=== PATIENT | female | born 1950 | race African-American/Black ===

== ENCOUNTER → 2016-12-22 | Outpatient (CLI) | payer MEDICARE, BC ==
--- NOTE | 2016-12-22 15:35 | Diagnostic Imaging Report ---
Indications: Right hip pain for 2 weeks Technique: Chronic axial T1-weighted fast spin-echo and STIR, coronal, sagittal, and axial proton density weighted fat saturated fast spin echo sequences of the right hip performed without IV gadolinium administration. Findings: Comparison: None Right hip joint intact, unremarkable in appearance. Normal width. No effusion. No acetabular or femoral head signal change or contour abnormality. Mildly increased signal within the gluteal tendon insertion on greater trochanter of right femur. No subjacent marrow signal change. Surrounding soft tissues otherwise unremarkable. Right sacroiliac joint likewise intact, unremarkable in appearance. Increased marrow signal within the fourth and fifth sacral vertebral bodies on fat saturated images, with a mild amount of adjacent soft tissue edema. No bony contour abnormality or destruction demonstrated. No additional foci of skeletal signal change identified. At least 2 discrete circumscribed hypointense masses within the uterine myometrium. Central pelvic soft tissue anatomy otherwise unremarkable. IMPRESSION: Abnormality of the fourth and fifth sacral vertebrae as described, may be traumatic or infectious in nature. Suggestion of right gluteal tendinopathy at femoral greater trochanteric insertion site, may be traumatic or inflammatory No other evidence of significant skeletal or articular abnormality--right hip and sacroiliac joints intact, unremarkable in appearance. Small uterine fibroids
--- NOTE | 2016-12-22 15:35 | Diagnostic Imaging Report ---
Indications: Left hip pain for 2 weeks Technique: Chronic axial T1-weighted fast spin-echo and STIR, coronal, sagittal, and axial proton density weighted fat saturated fast spin echo sequences of the left hip performed without IV gadolinium administration. Findings: Comparison: None Left hip joint intact, unremarkable in appearance. Normal width. No effusion. No acetabular or femoral head signal change or contour abnormality. Mildly increased signal within the gluteal tendon insertion on greater trochanter of left femur. No subjacent marrow signal change. Surrounding soft tissues otherwise unremarkable. Left sacroiliac joint likewise intact, unremarkable in appearance. Increased marrow signal within the fourth and fifth sacral vertebral bodies on fat saturated images, with a mild amount of adjacent soft tissue edema. No bony contour abnormality or destruction demonstrated. No additional foci of skeletal signal change identified. At least 2 discrete circumscribed hypointense masses within the uterine myometrium. Central pelvic soft tissue anatomy otherwise unremarkable. IMPRESSION: Abnormality of the fourth and fifth sacral vertebrae as described, may be traumatic or infectious in nature. Suggestion of left gluteal tendinopathy at femoral greater trochanteric insertion site, may be traumatic or inflammatory No other evidence of significant skeletal or articular abnormality--left hip and sacroiliac joints intact, unremarkable in appearance. Small uterine fibroids
== END | disposition home or self-care (01) ==
LOC: MRI 13:55
DX: M25.552 Pain in left hip (principal); M25.551 Pain in right hip; D25.9 Leiomyoma of uterus, unspecified

== ENCOUNTER → 2017-04-24 | Outpatient (CLI) | payer MEDICARE, BC | END | disposition home or self-care (01) | LOC: RAD 15:10 | DX: M25.572 Pain in left ankle and joints of left foot (principal) ==

== ENCOUNTER → 2017-04-27 | Outpatient (CLI) | payer MEDICARE, BC ==
--- NOTE | 2017-04-28 07:22 | Diagnostic Imaging Report ---
Indications: Left shoulder pain, rotator cuff tear Technique: Sagittal oblique T1 weighted fast spin echo, sagittal oblique and coronal oblique T2 weighted fat saturated fast spin echo, sagittal oblique, coronal oblique and axial proton density weighted fat saturated fast spin echo sequences of the left shoulder were performed without IV or intra-articular gadolinium administration. Findings: Comparison: None 5 x 3 mm discrete focus of fluid signal resides within the distal inferior aspect of the supraspinatus tendon at the footprint. Linear increased signal tracks from this point back to the musculotendinous junction along the undersurface of the supraspinatus tendon. There is superimposed diffusely increased signal throughout the supraspinatus and infraspinatus tendons. No tendon retraction or muscular atrophy. Teres minor, subscapularis muscles and tendons intact. Small amount of fluid in the subacromial/subdeltoid bursa. Mild degenerative changes in acromioclavicular joint. No significant inferior margin spurring. Marrow edema and cystic changes in the peripheral aspect of the acromion. Type I acromion. Small amount of fluid in the glenohumeral joint bursa. Posterosuperior aspect of the glenoid labrum small irregular. Circumscribed foci of signal change in the glenoid process subjacent to and coronal stair aspect of the glenoid labrum. Long head biceps tendon normally located within the bicipital groove, appears intact 2 bony process insertion site. Small amount of tendon sheath fluid. Focal edema and cystic changes in the posterior lateral aspect of humeral head. IMPRESSION: Small partial tear of the distal aspect of the supraspinatus tendon at the footprint. Associated interstitial delamination. Superimposed supraspinatus and infraspinatus tendinopathy Small subacromial/subdeltoid bursal, glenohumeral joint, biceps tendon sheath effusions Marrow space cystic changes and edema in the acromion, glenoid, humeral head likely all degenerative. Superimposed traumatic contusions not excludable. Apparent abnormality of the posterior superior aspect of glenoid labrum, not further characterizable on this examination. Clinically indicated, recommend MR arthrography for more detailed evaluation.
--- NOTE | 2017-04-29 10:02 | Diagnostic Imaging Report ---
Indications: Chronic right knee pain Technique: Coronal T1 weighted fast spin-echo and STIR, sagittal proton density weighted fast spin echo, coronal STIR, coronal, sagittal, and axial axial proton density weighted fat saturated fast spin echo sequences of the right knee were performed without IV or intra-articular gadolinium administration Findings: Comparison: None Lateral knee joint compartment normal in width. Mild marginal osteophyte formation. Mild diffuse thinning of femoral condylar articular cartilage without focal defect or subjacent marrow signal change. Lateral meniscus normal in position, size, and configuration. Contains linear mildly increased signal in anterior horn not definitely extending to articular surface. Medial knee joint compartment normal in width. Mild marginal osteophyte formation. Normal thickness and signal of femoral condylar articular cartilage without subjacent marrow signal change. Medial meniscus normal in position, size, configuration, and signal characteristics. Patellofemoral joint normal in width. Mild marginal osteophyte formation. Diffuse thinning of patellar articular cartilage along both medial and lateral facets. Multiple subjacent foci of marrow signal change along both facets, more so laterally. Trochlear articular cartilage and subjacent marrow space appear intact. Anterior and posterior cruciate ligaments, medial collateral ligament, lateral collateral complex, quadriceps and patellar tendons, medial and lateral patellar retinacula are intact, normal in configuration and signal characteristics. Small knee joint/suprapatellar effusion. No obvious intra-articular loose body. Prepatellar soft tissues are edematous. Popliteal fossa unremarkable. Distal femur, patella, proximal tibia and fibula normal in configuration and marrow signal characteristics, aside from changes described above. 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
== END | disposition home or self-care (01) ==
LOC: MRI 12:44
DX: M25.561 Pain in right knee (principal); M17.11 Unilateral primary osteoarthritis, right knee; R60.0 Localized edema; M75.102 Unspecified rotator cuff tear or rupture of left shoulder, not specified as traumatic

== ENCOUNTER 2018-02-09 11:33 | Outpatient (CLI) | payer MEDICARE, BC ==
[2018-02-10] MEDS ORDERED: ASPIR 8181 MG ORAL (15:53)
--- NOTE | 2018-02-10 15:55 | GI Initial Consult Note ---
History of Present Illness General Date patient seen: Feb 09, 2018 Time patient seen: 11:00 Referring physician: MARTA Reason for Consultation: COLONOSCOPY Present Illness HPI 67 year old patient referred by Dr. Díaz for colonoscopy screening. Patient presents today with c/o of heartburn associated with GERD. Denies any unintentional weight loss or changes in dietary habits. No dysphagia. No signs of abuse or neglect. Patient is not fall risk. Last colonoscopy x 5 years ago. Home Meds Reported Medications Aspirin* (ASPIR 81*) 81 Mg Tablet., 81 MG ORAL DAILY, TAB 02/10/18 Allergies: Coded Allergies: Sulfa (Sulfonamide Antibiotics) (Unverified Allergy, Severe, 02/10/18) Patient History History Provided By: Patient PMH Narrative Hypothyroidism BP Asthma Past Surgical History: cholecystectomy Pertinent Family History: none Social History: Denies: smoking, alcohol use, drug use, other Review of Systems All Other Systems: negative except mentioned in HPI Physical Exam Sp02 EP Interpretation: reviewed, normal General Appearance: well appearing, no apparent distress, alert Head: normocephalic EENT: PERRL/EOMI, normal ENT inspection Neck: supple Respiratory: normal breath sounds, no respiratory distress Cardiovascular: normal rate Gastrointestinal: normal inspection, non tender, soft, normal bowel sounds, non -distended Rectal: deferred Genitourinary: no CVA tenderness Musculoskeletal: normal inspection, back normal Neurologic: normal inspection, alert, oriented x3, responsive Psychiatric: normal inspection, judgement/insight normal, memory normal Skin: normal inspection, normal color, no rash, warm/dry, palpation normal, well hydrated Lymphatic: normal inspection, no adenopathy GI: Plan Problems: (1) GERD (gastroesophageal reflux disease) Plan Colonoscopy scheduled for 02/15/18. - CLD & (Nulytely/Suprep/Movi-Prep) prep instructions given and acknowledged by patient. - NPO @ [place] day prior procedure explained. Seen with Dr. Mccormack. Thank you for this patient referral. Lola Romero N.P. Feb 10, 2018 15:55
== END 2018-02-09 12:05 | disposition home or self-care (01) ==
LOC: PAN 11:33
DX: K21.9 Gastro-esophageal reflux disease without esophagitis (principal); Z79.82 Long term (current) use of aspirin; E03.9 Hypothyroidism, unspecified; Z90.49 Acquired absence of other specified parts of digestive tract
CPT/HCPCS: 99201

== ENCOUNTER 2018-03-04 13:24 | Outpatient (CLI) | payer MEDICARE, BC ==
[2018-03-04 13:15] VITALS: BP 114/65
[~2018-03-04 13:24] MED LIST: ADVAIR 250-501 EACH INH; ASPIR 8181 MG ORAL; SINGULAIR10 MG ORAL
--- NOTE | 2018-03-04 13:58 | GI Progress Note ---
Assessment/Plan Problems: (1) Gastritis ICD Codes: K29.70 - Gastritis, unspecified, without bleeding SNOMED: 4308067 Status: stable Status Narrative Discussed with Dr. Mccormack. Assessment/Plan SUMMARY OF FINDINGS: 1. Diffuse gastritis, status post biopsy. 2. Small hiatal hernia. RECOMMENDATIONS: Follow up biopsy results and treat accordingly. >> negative discussed with patient RTC PRN Subjective Gastrointestinal/Abdominal: Reports: no symptoms Objective T 98.2 BP 114/82 P 66 99 RA General Appearance: WD/WN, no apparent distress, alert Cardiovascular: normal rate Respiratory/Chest: normal breath sounds, no respiratory distress Abdominal Exam: normal bowel sounds, non tender, soft Extremities: normal range of motion, non-tender Maricruz Romero NP March 04, 2018 13:58
== END 2018-03-04 13:59 | disposition home or self-care (01) ==
LOC: PAN 13:24
DX: K29.70 Gastritis, unspecified, without bleeding (principal); K44.9 Diaphragmatic hernia without obstruction or gangrene
CPT/HCPCS: 99212

== ENCOUNTER 2019-08-18 12:52 | Outpatient (CLI) | payer MEDICARE, BC ==
--- NOTE | 2019-08-18 13:06 | General Progress Note ---
Assessment/Plan Problem List: (1) Gastritis ICD Codes: K29.70 - Gastritis, unspecified, without bleeding SNOMED: 9300152 (2) GERD (gastroesophageal reflux disease) ICD Codes: K21.9 - Gastro-esophageal reflux disease without esophagitis SNOMED: 481820320 Assessment/Plan: plan colonoscopy next week Subjective ROS Limited/Unobtainable: Yes Allergies: Coded Allergies: SULFA (SULFONAMIDE ANTIBIOTICS) (Unverified Allergy, Severe, 02/10/18) Objective General Appearance: alert EENT: normal ENT inspection Neck: supple Cardiovascular: normal rate Respiratory/Chest: decreased breath sounds Abdomen: normal bowel sounds, non tender, soft Extremities: non-tender Elias Mccormack MD Aug 18, 2019 13:06
== END 2019-08-18 14:52 | disposition home or self-care (01) ==
LOC: PAN 12:52
DX: K29.70 Gastritis, unspecified, without bleeding (principal); K21.9 Gastro-esophageal reflux disease without esophagitis; Z88.2 Allergy status to sulfonamides
CPT/HCPCS: 99212

== ENCOUNTER 2019-08-26 09:51 | Day surgery (SDC) | payer MEDICARE, BC ==
[~2019-08-26] VITALS: Ht 160 cm; Wt 67.1 kg
[2019-08-26] VITALS (9 sets, daily range): BP systolic 107–144; BP diastolic 61–81
[~2019-08-26 09:51] MED LIST changes: +LR 1000ml 1,000 ML IVLG SCH
--- NOTE | 2019-08-26 10:04 | Pre-Procedure Note/Attestation ---
Pre-Procedure Note/Attestation Complete Prior to Procedure Planned Procedure: not applicable Procedure Narrative: colonoscopy Indications for Procedure Pre-Operative Diagnosis: screening Attestation I attest that I discussed the nature of the procedure; its benefits; risks and complications; and alternatives (and the risks and benefits of such alternatives ), prior to the procedure, with the patient (or the patient's legal guest relations representative). I attest that, if there was a reasonable possibility of needing a blood transfusion, the patient (or the patient's legal guest relations representative) was given the [facility] standardized written summary, pursuant to the [place] Blood Safety Act ([place] Health and Safety Code # 1645, as amended). I attest that I re-evaluated the patient just prior to the surgery and that there has been no change in the patient's H&P, except as documented below: Elias Mccormack MD Aug 26, 2019 10:04
--- NOTE | 2019-08-26 10:04 | Short Stay Surgery H&P ---
History of Present Illness History of Present Illness Chief Complaint screening colon HPI Sabrina Garcia is a 68 year old female who was admitted on for Abdominal Pain Patient History Allergies: Coded Allergies: SULFA (SULFONAMIDE ANTIBIOTICS) (Unverified Allergy, Severe, 02/10/18) PAST MEDICAL HISTORY: (1) GERD (gastroesophageal reflux disease) (2) Gastritis Medication History Scheduled Aspirin* (Aspir 81*), 81 MG ORAL DAILY, (Reported) Fluticasone/Salmeterol (Advair 250-50 Diskus), 1 PUFF INH PRN, (Reported) Montelukast Sodium* (Singulair*), 10 MG ORAL DAILY, (Reported) Review of Systems Cardiovascular: Reports: no symptoms, source of infx-prosthesis Gastrointestinal: Reports: gastro esophageal reflux disease Genitourinary: Reports: no symptoms Neurologic: Reports: no symptoms Endocrine: Reports: no symptoms Hematologic: Reports: no symptoms Physical Exam Skin: normal HENT: normal Heart: normal Lungs: normal Abdomen: normal Extremities: normal Plan Plan of Care colonoscopy Attestation Are the patient's medical conditions optimized for surgery? Attestation Response: yes Elias Mccormack MD Aug 26, 2019 10:04
[2019-08-26] MEDS ORDERED: SYNTHROID88 MCG ORAL (11:49)
[2019-08-26] MEDS ORDERED: LOSARTAN POTASS25 MG ORAL (11:49)
[2019-08-26] MEDS ORDERED: Lidocaine 1% MPF 10mg/ml 5ml ONE (11:55)
[2019-08-26] MEDS ORDERED: Propofol 200mg/20ml IV ONE (11:55)
[2019-08-26] MEDS ORDERED: LR 1000ml ONE (11:55)
--- NOTE | 2019-08-26 12:22 | Endoscopy Procedure Note ---
Endoscopy Procedure Note General Indication for Procedure: screening Procedures Performed: colonoscopy Operative Findings/Diagnosis: diverticulosis Specimen: none Pt Tolerated Procedure Well: Yes Estimated Blood Loss: none Anesthesia Anesthesiologist: joyce Anesthesia: MAC Inserted Devices Implant(s) used?: No Quality Quality of Bowel Preparation: Good Did scope reach the cecum?: Yes Was there any complications?: No GI Core Measures 50 yrs or older w/o bx or poly: No 10yrs. F/U recommended: Yes If not recommended, why?: Above average risk 18 years or older w/prev. colo: No Elias Mccormack MD Aug 26, 2019 12:22
--- NOTE | 2019-08-26 12:31 | Anethesia Preoperative Eval ---
Anesthesia Pre-op PMH/ROS General Date of Evaluation: Aug 26, 2019 Time of Evaluation: 11:55 Anesthesiologist: coy ASA Score: ASA 2 Mallampati Score Class I : Soft palate, uvula, fauces, pillars visible Class II: Soft palate, uvula, fauces visible Class III: Soft palate, base of uvula visible Class IV: Only hard plate visible Mallampati Classification: Class II Surgeon: cintia Diagnosis: screening Surgical Procedure: colonoscopy Family History: no anesthesia problems Allergies: Coded Allergies: SULFA (SULFONAMIDE ANTIBIOTICS) (Unverified Allergy, Severe, 02/10/18) Medications: see eMAR Patient NPO?: Yes NPO Date: Aug 26, 2019 NPO Time: 00:01 Past Medical History Cardiovascular: Reports: HTN; Denies: CAD, ID, valve dz, arrhythmia, other Pulmonary: Denies: asthma, COPD, [place], other Gastrointestinal/Genitourinary: Denies: GERD, CRI, ESRD, other Neurologic/Psychiatric: Denies: dementia, CVA, depression/anxiety, TIA, other Endocrine: Reports: hypothyroidism; Denies: DM, steroids, other HEENT: Denies: cataract (L), cataract (R), glaucoma, [place] (L), [place] (R), other Hematology/Immune: Denies: anemia, DVT, bleeding disorder, other Anesthesia Pre-op Phys. Exam Physician Exam Last Vital Signs Date Time Temp Pulse Resp B/P (MAP) Pulse Ox O2 Delivery O2 Flow Rate FiO2 08/26/19 11:46 Room Air 08/26/19 11:20 97.1 69 16 128/73 97 Constitutional: NAD Neurologic: CN 2-12 intact Cardiovascular: RRR Respiratory: CTA Gastrointestinal: S/NT/ND Airway Exam Mallampati Classification 2 Mallampati Score: Class II MO: full Dentures: no upper, no lower Anesthesia Pre-op A/P Studies Pre-op Studies: EKG - sr Risk Assessment & Plan Plan: mac Status Change Before Surgery: No Pre-Antibiotics Drug: none Tonya Lombardi CRNA Aug 26, 2019 12:31
--- NOTE | 2019-08-26 12:32 | Immediate Post-Op Evaluation ---
Immediate Post-Op Evalulation Immediate Post-Op Evalulation Procedure: colonoscopy Date of Evaluation: Aug 26, 2019 Time of Evaluation: 12:31 IV Fluids: 500 Blood Pressure Systolic: 125 Blood Pressure Diastolic: 50 Pulse Rate: 70 Respiratory Rate: 14 O2 Sat by Pulse Oximetry: 98 Temperature (Fahrenheit): 98.7 Pain Score (1-10): 0 Nausea: No Vomiting: No Patient Status: awake, reacts, patent Hydration Status: adequate Drug: none CarlriTonya angeles CRNA Aug 26, 2019 12:32
--- NOTE | 2019-08-26 13:29 | 48 Hour Post Anesthesia Eval ---
Post Anesthesia Evaluation Procedure: colonoscopy Date of Evaluation: Aug 26, 2019 Time of Evaluation: 13:29 Blood Pressure Systolic: 129 0: 66 Pulse Rate: 51 Respiratory Rate: 16 O2 Sat by Pulse Oximetry: 98 Airway: patent Nausea: No Vomiting: No Hydration Status: adequate Cardiopulmonary Status: stable Mental Status/LOC: patient returned to baseline Post-Anesthesia Complications: none Follow-up care needed: N/A Tonya Lombardi CRNA Aug 26, 2019 13:29
--- NOTE | 2019-08-26 16:30 | Procedure Note ---
DATE OF PROCEDURE: 08/26/2019 SURGEON: Elias Mccormack M.D. PROCEDURE: Colonoscopy. ANESTHESIA: Per PASTRY COOK HELPER, Tonya Tarrillion. INSTRUMENT: Olympus adult flexible colonoscope. INDICATIONS: Screening colonoscopy. REASON FOR PROCEDURE: The procedure, risks, benefits, and possible consequences, including hemorrhage, aspiration, perforation and infection, and alternative treatments, were explained to the patient/legal guardian by Dr. Elias Mccormack and the patient/legal guardian understood and accepted these risks. PROCEDURE: After informed consent was obtained and the patient was adequately sedated, first rectal exam was performed, which was positive for internal hemorrhoids. Then, the scope was advanced from the rectum into the cecum documented by appendix orifice, ileocecal valve, and right upper quadrant palpation. Quality of prep was good. The patient had evidence of no obvious polyp seen in this colonoscopy examination. She has diverticulosis more prominent in the left than right. No obvious diverticulitis. Retroflexion of the rectum showed evidence of internal hemorrhoids. SUMMARY OF FINDINGS: 1. Diverticulosis. 2. Internal hemorrhoids. RECOMMENDATIONS: Repeat colonoscopy in 5 years. Elias Mccormack M.D. DR: LORIE JOB#: [id number] CC:
== END 2019-08-26 13:35 | disposition home or self-care (01) ==
LOC: GAS 09:51
DX: Z12.11 Encounter for screening for malignant neoplasm of colon (principal); K57.90 Diverticulosis of intestine, part unspecified, without perforation or abscess without bleeding; K64.8 Other hemorrhoids; K21.9 Gastro-esophageal reflux disease without esophagitis; Z88.2 Allergy status to sulfonamides; Z79.899 Other long term (current) drug therapy; I10 Essential (primary) hypertension; E03.9 Hypothyroidism, unspecified
CPT/HCPCS: 45378; J2704; 94003; 94150

== ENCOUNTER 2020-10-31 07:11 | Day surgery (SDC) | payer MEDICARE, BC ==
[2020-10-31] VITALS (10 sets, daily range): BP systolic 125–143; BP diastolic 67–78
[~2020-10-31] VITALS: Ht 157.5 cm; Wt 67.6 kg
[~2020-10-31 07:11] MED LIST changes: +AZELASTINE137 MCG/0. NS; +FLUTICASONE PRO16 G1 NASAL; +LOSARTAN POTASS25 MG ORAL; -LR 1000ml 1,000 ML IVLG SCH; +MONTELUKAST SOD10 MG ORAL; +SYNTHROID88 MCG ORAL
[2020-10-31] MEDS ORDERED: LR 1000ml 1,000 ML IVLG SCH ×2 (08:00→09:30)
--- NOTE | 2020-10-31 08:58 | Pre-Procedure Note/Attestation ---
Pre-Procedure Note/Attestation Complete Prior to Procedure Planned Procedure: not applicable Procedure Narrative: esophagogastroduodenoscopy and colonoscopy Indications for Procedure Pre-Operative Diagnosis: positive pet scan Attestation I attest that I discussed the nature of the procedure; its benefits; risks and complications; and alternatives (and the risks and benefits of such altern atives), prior to the procedure, with the patient (or the patient's legal benefits representative). I attest that, if there was a reasonable possibility of needing a blood transfusion, the patient (or the patient's legal benefits representative) was given the [facility] standardized written summary, pursuant to the [place] Blood Safety Act ([place] Health and Safety Code # 1645, as amended). I attest that I re-evaluated the patient just prior to the surgery and that there has been no change in the patient's H&P, except as documented below: Elias Mccormack MD Oct 31, 2020 08:58
--- NOTE | 2020-10-31 08:59 | Short Stay Surgery H&P ---
History of Present Illness History of Present Illness Chief Complaint see office note HPI Sabrina Garcia is a 69 year old female who was admitted on for Abdominal Pain Patient History Allergies: Coded Allergies: SULFA (SULFONAMIDE ANTIBIOTICS) (Unverified Allergy, Severe, 02/10/18) Medication History Scheduled Aspirin* (Aspir 81*), 81 MG ORAL DAILY, (Reported) Azelastine Hcl (Azelastine Hcl), 137 MCG NS BID, (Reported) Fluticasone Propionate* (Fluticasone Propionate*), 1 SPRAY NASAL DAILY, (Reported) Fluticasone/Salmeterol (Advair 250-50 Diskus), 1 PUFF INH EVERY 12 HOURS, (Reported) Levothyroxine Sodium* (Synthroid*), 88 MCG ORAL DAILY, (Reported) Losartan Potassium* (Losartan Potassium*), 50 MG ORAL DAILY, (Reported) Montelukast Sodium* (Montelukast Sodium*), 10 MG ORAL DAILY, (Reported) Physical Exam Vital Signs Last Vital Signs Date Time Temp Pulse Resp B/P (MAP) Pulse Ox O2 Delivery O2 Flow Rate FiO2 10/31/20 07:42 Room Air 10/31/20 07:37 97.4 68 18 125/73 96 Plan Attestation Are the patient's medical conditions optimized for surgery? Elias Mccormack MD Oct 31, 2020 08:59
[2020-10-31] MEDS ORDERED: LR 1000ml ONE (09:00)
[2020-10-31] MEDS ORDERED: Lidocaine 1% MPF 10mg/ml 5ml ONE (09:00)
[2020-10-31] MEDS ORDERED: Ketorolac 30mg Inj IV PRN ×2 (09:30)
[2020-10-31] MEDS ORDERED: Hydromorphone 0.5mg/0.5ml inj IVP PRN (09:30)
[2020-10-31] MEDS ORDERED: Atropine Sulfate 0.4mg/ml inj IVP PRN (09:30)
[2020-10-31] MEDS ORDERED: oxyCODONE HCL/Acetaminophen 5/325mg ORAL PRN (09:30)
[2020-10-31] MEDS ORDERED: Meperidine 25mg/1ml Inj (FOR RIGORS ONLY) IV PRN (09:30)
[2020-10-31] MEDS ORDERED: fentaNYL 100 mcg/2 mL IV PRN (09:30)
[2020-10-31] MEDS ORDERED: Labetalol 5mg/ml 20ml vial IV PRN (09:30)
[2020-10-31] MEDS ORDERED: LORazepam Inj 2mg/ml 1ml IV PRN (09:30)
[2020-10-31] MEDS ORDERED: DiphenhydrAMINE 50mg/ml Inj IVP PRN (09:30)
[2020-10-31] MEDS ORDERED: Midazolam 2mg/2ml Inj IVP PRN (09:30)
[2020-10-31] MEDS ORDERED: HYDROcodone/Acetamin 5/325 tab ORAL PRN (09:30)
[2020-10-31] MEDS ORDERED: HYDROcodone/Acetamin 7.5/325 tab ORAL PRN (09:30)
[2020-10-31] MEDS ORDERED: Metoclopramide 10mg/2ml Inj IVP PRN (09:30)
--- NOTE | 2020-10-31 09:30 | Anethesia Preoperative Eval ---
Anesthesia Pre-op PMH/ROS General Date of Evaluation: Oct 31, 2020 Time of Evaluation: 09:09 Anesthesiologist: Brayan ASA Score: ASA 3 Mallampati Score Class I : Soft palate, uvula, fauces, pillars visible Class II: Soft palate, uvula, fauces visible Class III: Soft palate, base of uvula visible Class IV: Only hard plate visible Mallampati Classification: Class II Surgeon: Ksenia Diagnosis: Abd Pain Surgical Procedure: EGD/Colonoscopy Anesthesia History: none Family History: no anesthesia problems Allergies: Coded Allergies: SULFA (SULFONAMIDE ANTIBIOTICS) (Unverified Allergy, Severe, 02/10/18) Medications: see eMAR Patient NPO?: Yes Past Medical History Cardiovascular: Reports: HTN, other - HL Pulmonary: Reports: asthma - Bronchitis Gastrointestinal/Genitourinary: Reports: GERD, other - Diverticulosis, Hiatal Hernia Endocrine: Reports: hypothyroidism PSxH Narrative: Cholecystectomy Anesthesia Pre-op Phys. Exam Physician Exam Last Vital Signs Date Time Temp Pulse Resp B/P (MAP) Pulse Ox O2 Delivery O2 Flow Rate FiO2 10/31/20 07:42 Room Air 10/31/20 07:37 97.4 68 18 125/73 96 Constitutional: NAD Neurologic: CN 2-12 intact Cardiovascular: RRR Respiratory: CTA Gastrointestinal: S/NT/ND Airway Exam Mallampati Score: Class II MO: limited ROM: limited Teeth: missing Anesthesia Pre-op A/P Risk Assessment & Plan Assessment: ASA 3 Plan: TIVA Status Change Before Surgery: No Gen Schmidt MD Oct 31, 2020 09:30
--- NOTE | 2020-10-31 09:31 | Immediate Post-Op Evaluation ---
Immediate Post-Op Evalulation Immediate Post-Op Evalulation Procedure: EGD/Colonoscopy Date of Evaluation: Oct 31, 2020 Time of Evaluation: 10:07 IV Fluids: 1000 LR Blood Products: 0 Estimated Blood Loss: 3 Urinary Output: 0 Blood Pressure Systolic: 133 Blood Pressure Diastolic: 76 Pulse Rate: 61 Respiratory Rate: 18 O2 Sat by Pulse Oximetry: 100 Temperature (Fahrenheit): 97.2 Pain Score (1-10): 2 Nausea: No Vomiting: No Complications 0 Patient Status: awake, reacts, patent, none Hydration Status: adequate Gen Schmidt MD Oct 31, 2020 09:31
--- NOTE | 2020-10-31 09:32 | 48 Hour Post Anesthesia Eval ---
Post Anesthesia Evaluation Procedure: EGD/Colonoscopy Date of Evaluation: Oct 31, 2020 Time of Evaluation: 12:13 Blood Pressure Systolic: 149 0: 98 Pulse Rate: 63 Respiratory Rate: 18 Temperature (Fahrenheit): 98 O2 Sat by Pulse Oximetry: 100 Airway: patent Nausea: No Vomiting: No Pain Intensity: 2 Hydration Status: adequate Cardiopulmonary Status: Stable Mental Status/LOC: patient returned to baseline Follow-up Care/Observations: 0 Post-Anesthesia Complications: 0 Follow-up care needed: ready to discharge Gen Schmidt MD Oct 31, 2020 09:32
--- NOTE | 2020-10-31 09:41 | Endoscopy Procedure Note ---
Endoscopy Procedure Note General Indication for Procedure: PET positive Procedures Performed: EGD, colonoscopy Operative Findings/Diagnosis: gastritis, Diverticulosis Specimen: yes Pt Tolerated Procedure Well: Yes Estimated Blood Loss: none Anesthesia Anesthesiologist: mary Anesthesia: MAC Inserted Devices Implant(s) used?: No Quality Quality of Bowel Preparation: Good Did scope reach the cecum?: Yes Was there any complications?: No GI Core Measures 50 yrs or older w/o bx or poly: No 10yrs. F/U recommended: Yes If not recommended, why?: Above average risk 18 years or older w/prev. colo: Yes <3yrs. since last colonoscopy: No Elias Mccormack MD Oct 31, 2020 09:41
--- NOTE | 2020-10-31 12:00 | Procedure Note ---
DATE OF PROCEDURE: 10/31/2020 SURGEON: Elias Mccormack MD. REFERRING PHYSICIAN: Sydnie Benz MD. PROCEDURE: Upper endoscopy with biopsy and colonoscopy. ANESTHESIA: Per Dr. Whitaker. INSTRUMENT: Olympus adult flexible upper endoscope and colonoscope. INDICATION: Positive PET scan showing some sigmoid and esophageal mass. REASON FOR PROCEDURE: The procedure, risks, benefits, and possible consequences, including hemorrhage, aspiration, perforation and infection, and alternative treatments, were explained to the patient/legal guardian by Dr. Elias Mccormack and the patient/legal guardian understood and accepted these risks. PROCEDURE IN DETAIL: After informed consent was obtained and the patient was adequately sedated, Olympus upper endoscope was advanced from mouth into the second portion of duodenum and retroflexion was performed in the stomach. The patient has evidence of diffuse atrophic gastritis. Random biopsy from antrum and body was obtained to rule out H. pylori infection. No obvious mass was seen. The rest of the examination grossly looked within normal limits. At this time, the upper endoscope was retrieved and the patient was turned over for colonoscopy. First, rectal exam was performed, which was positive for internal hemorrhoids. Then, the scope was advanced from the rectum into the cecum documented by appendix orifice, ileocecal valve, and right upper quadrant palpation. Quality of prep was good. The patient has evidence of significant diverticulosis, mainly on the left with some scattered diverticula in the right. No obvious mass, polyp, or any pathology was seen. No mass was seen in the sigmoid colon. Retroflexion of rectum showed evidence of medium-sized nonbleeding internal hemorrhoids. SUMMARY OF FINDINGS: 1. Atrophic gastritis, status post biopsy. 2. Diverticulosis. 3. Internal hemorrhoids. RECOMMENDATIONS: Follow biopsy results and treat accordingly. I want to thank Dr. Sydnie Benz for this kind referral. Elias Mccormack M.D. DR: LORIE JOB#: [id number] CC: Sydnie Benz M.D.; Fax#: [phone]
--- NOTE | 2020-11-02 13:00 | Cardiology Report ---
APPROVED REPORT EKG Measurement Heart [id number] <Conclusion> Normal sinus rhythm Normal ECG
== END 2020-10-31 11:30 | disposition home or self-care (01) ==
LOC: GAS 07:11
DX: K22.9 Disease of esophagus, unspecified (principal); K29.40 Chronic atrophic gastritis without bleeding; K57.90 Diverticulosis of intestine, part unspecified, without perforation or abscess without bleeding; K64.8 Other hemorrhoids; Z79.82 Long term (current) use of aspirin; Z88.2 Allergy status to sulfonamides; I10 Essential (primary) hypertension; E03.9 Hypothyroidism, unspecified; K21.9 Gastro-esophageal reflux disease without esophagitis; Z90.49 Acquired absence of other specified parts of digestive tract
CPT/HCPCS: 43239; 45378; 93005; 94003; J2704; J7120; U0004; 94150

== ENCOUNTER 2020-11-07 12:53 | Outpatient (CLI) | payer MEDICARE, BC ==
--- NOTE | 2020-11-07 14:13 | General Progress Note ---
Subjective ROS Limited/Unobtainable: Yes Allergies: Coded Allergies: SULFA (SULFONAMIDE ANTIBIOTICS) (Unverified Allergy, Severe, 02/10/18) Objective General Appearance: alert EENT: normal ENT inspection Neck: supple Cardiovascular: normal rate, gallop/S3 Abdomen: normal bowel sounds, non tender, soft Extremities: non-tender Assessment/Plan Assessment/Plan: s/p EGD and colonoscopy SUMMARY OF FINDINGS: 1. Atrophic gastritis, status post biopsy. 2. Diverticulosis. 3. Internal hemorrhoids. repeat colon in 5 years Elias Mccormack MD Nov 07, 2020 14:13
== END 2020-11-07 15:30 | disposition home or self-care (01) ==
LOC: PAN 12:53
DX: K29.40 Chronic atrophic gastritis without bleeding (principal); K57.90 Diverticulosis of intestine, part unspecified, without perforation or abscess without bleeding; K64.8 Other hemorrhoids; Z88.2 Allergy status to sulfonamides
CPT/HCPCS: 99212